=== PATIENT | female | born 1955 | race Caucasian/White ===

== ENCOUNTER → 2018-02-03 | Outpatient (CLI) | payer OTHER ==
--- NOTE | 2018-02-03 08:33 | RADIOLOGY REPORT (SQ) ---
EXAM DESCRIPTION: CHEST 2 VIEWS COMPLETED DATE/TIME: 02/03/2018 8:25 am REASON FOR STUDY: SOB (R06.02) COMPARISON: None. EXAM PARAMETERS: NUMBER OF VIEWS: two views TECHNIQUE: Digital Frontal and Lateral radiographic views of the chest acquired. RADIATION DOSE: NA LIMITATIONS: none FINDINGS: LUNGS AND PLEURA: No consolidations or effusions. There is curvilinear atelectasis the le ft base. MEDIASTINUM AND HILAR STRUCTURES: No masses or contour abnormalities. HEART AND VASCULAR STRUCTURES: Heart normal size. No evidence for failure. BONES: No acute findings. HARDWARE: None in the chest. OTHER: No other significant finding. IMPRESSION: No significant findings in the chest. TECHNICAL DOCUMENTATION: JOB ID: [id number] [employer]- All Rights Reserved Reading location - IP/workstation name: [email or web address]
--- NOTE | 2018-02-03 10:23 | RADIOLOGY REPORT (SQ) ---
EXAM DESCRIPTION: MRI RT LOWER JOINT WITHOUT COMPLETED DATE/TIME: 02/03/2018 9:45 am REASON FOR STUDY: PAIN IN RIGHT ANKLE (M25.571) M25.571 PAIN IN RIGHT ANKLE AND JOINTS OF RIGHT DENNY T R10.10 UPPER ABDOMINAL PAIN, UNSPECIFIED COMPARISON: None. TECHNIQUE: Right ankle images acquired and stored on PACS. Multiplanar images include fat sensitive sequences as T1, fluid sensitive sequences as FST2/STIR, cartilage sensitive sequences as FSPD, and g radient echo sequences. LIMITATIONS: Artifact plantar surface subcutaneous tissues forefoot. FINDINGS: BONE MARROW: Edema in the navicular. No fracture line identified. EFFUSIONS: No subtalar or tibiotalar effusions. No loose bodies. OSSEOUS ARTICULATIONS: Intact. TALAR DOME AND TIBIAL PLAFOND: Intact. ACHILLES TENDON: Intact without partial or full-thickness tear. No adjacent bursal fluid or edema. TIBIALIS ANTERIOR TENDON: Intact without edema at the 1st MT attachment. TIBIALIS POSTERIOR TENDON: Intact. FLEXOR HALLUCIS LONGUS AND FLEXOR DIGITORUM TENDONS: Intact. PERONEUS LONGUS AND BREVIS TENDON: Intact. ATFL, CFL, PTFL: Intact. No thickening or signal alteration. No rosita-ligamentous fluid. DELTOID LIGAMENT: Visualized components intact. TARSAL TUNNEL: No masses. No muscle atrophy. SINUS TARSI: No fluid. No reactive marrow edema or erosions. PLANTAR FASCIA: Intermediate signal and thickening of the calcaneal attachment. ADJACENT SOFT TISSUES: Cyst or ganglion between the distal 3rd and 4th metatarsals . OTHER: No other significant finding. IMPRESSION: 1. Marrow edema in the navicular which is nonspecific but worrisome for AVN in the absence of history of trauma. 2. Mild plantar fasciitis. TECHNICAL DOCUMENTATION: JOB ID: [id number] [employer]- All Rights Reserved Reading location - IP/workstation name: [email or web address]
--- NOTE | 2018-02-03 14:43 | RADIOLOGY REPORT (SQ) ---
EXAM DESCRIPTION: CT ABDOMEN COMBO COMPLETED DATE/TIME: 02/03/2018 8:49 am REASON FOR STUDY: UPPER ABD PAIN (R10.10) M25.571 PAIN IN RIGHT ANKLE AND JOINTS OF RIGHT FOOT R10. 10 UPPER ABDOMINAL PAIN, UNSPECIFIED COMPARISON: None. TECHNIQUE: CT scan of the abdomen performed with and without intravenous contrast, and oral contras t. Contrasted imaging performed using helical scanning technique with dynamic intravenous contrast in jection. Images reviewed with lung, soft tissue, and bone windows. Reconstructed coronal and sagittal MPR images reviewed. Delayed images for evaluation of the urinary system also acquired and evaluated . All images stored on PACS. All CT scanners at this facility use dose modulation, iterative reconstruction, and/or weight based d osing when appropriate to reduce radiation dose to as low as reasonably achievable (ALARA). [facility]: Dose Right [facility]: CareDose [facility]: Dose Right [facility]: Teradose 4D [facility]: sellpoints CONTRAST TYPE AND DOSE: contrast/concentration: Isovue 350.00 mg/ml; Total Contrast Delivered: 60.0 ml; Total Saline Delivered: 80.0 ml RENAL FUNCTION: Creatinine 0.8 RADIATION DOSE: CT Rad equipment meets quality standard of care and radiation dose reduction techniq ues were employed. CTDIvol: 15.9 - 28.2 mGy. DLP: 2399 mGy-cm.. LIMITATIONS: None. FINDINGS: NONCONTRASTED IMAGING: No significant renal or bladder calcifications. No other significan t organ calcifications. POSTCONTRASTED IMAGING: LOWER CHEST: Small hiatal hernia. LIVER: Normal size. No masses. No dilated ducts. SPLEEN: Normal size. No focal lesions. PANCREAS: No masses. No significant calcifications. No adjacent inflammation or peripancreatic fluid collections. Pancreatic duct not dilated. GALLBLADDER: No identified stones by CT criteria. No inflammatory changes to suggest cholecystitis. ADRENAL GLANDS: No significant masses or asymmetry. RIGHT KIDNEY AND URETER: No solid masses. No significant calcifications. No hydronephrosis or hyd roureter. LEFT KIDNEY AND URETER: 5 cm cyst lower pole. No solid mass. No significant calcifications. No h ydronephrosis or hydroureter. AORTA AND VESSELS: No aneurysm. No dissection. Renal arteries, SMA, celiac without stenosis. RETROPERITONEUM: No retroperitoneal adenopathy, hemorrhage or masses. BOWEL AND PERITONEAL CAVITY: Diverticulosis descending colon. No masses or inflammatory changes. No free fluid or peritoneal masses. APPENDIX: Not visualized. ABDOMINAL WALL: Small fat containing umbilical hernia. BONES: No acute findings. OTHER: No other significant finding. IMPRESSION: Diverticulosis descending colon. No acute findings. No urinary tract stones. TECHNICAL DOCUMENTATION: JOB ID: [id number] Quality ID # [id number]: Final reports with documentation of one or more dose reduction techniques (e.g., Au tomated exposure control, adjustment of the mA and/or kV according to patient size, use of iterative reconstruction technique) 2010 [employer]- All Rights Reserved Reading location - IP/workstation name: [email or web address]
== END ==
LOC: RAD 07:45
PROVIDERS: ATTEND Family Medicine
DX: G35 Multiple sclerosis (principal); K57.30 Diverticulosis of large intestine without perforation or abscess without bleeding; R10.10 Upper abdominal pain, unspecified; M25.571 Pain in right ankle and joints of right foot; R06.02 Shortness of breath
CPT/HCPCS: 71046; 74170; 82565

== ENCOUNTER → 2018-02-04 | Outpatient (CLI) | payer OTHER ==
--- NOTE | 2018-02-05 11:10 | RADIOLOGY REPORT (SQ) ---
EXAM DESCRIPTION: MRI HEAD COMBO COMPLETED DATE/TIME: 02/04/2018 7:56 pm REASON FOR STUDY: G35 MULTIPLE SCLEROSIS G35 MULTIPLE SCLEROSIS COMPARISON: None available TECHNIQUE: Multiplanar imaging includes noncontrasted T1, T2, FLAIR, diffusion with ADC map and post gadolinium contrast T1 sequences. Images stored on PACS. CONTRAST TYPE AND DOSE: 20 mL Dotarem. RENAL FUNCTION: GFR > 60. LIMITATIONS: Dedicated orbital protocol not performed. Routine brain imaging. FINDINGS: ANATOMY: No developmental anomalies. Normal vascular flow voids. Pituitary fossa normal. CSF SPACES: Normal in size and contour. No hemorrhage. CEREBRUM: In the right posterior frontal/ parietal deep periventricular white matter, a 5 mm focus of altered signal is present on FLAIR/ T2/diffusion weighted images. No definite contrast enhancement. This could represent a subacute demyelinating plaque. Scattered few other smaller foci of increased FLAIR/ T2 signal in the bifrontal deep periventricular white matter, left parietal white matter, right temporal lobe white matter from quiescent MS plaques. No MR evidence of acute ischemic change, acute intracranial hemorrhage, mass effect, or midline shift . POSTERIOR FOSSA: No signal alteration. No hemorrhage. No edema, masses, or mass effect. Internal dae tory canals, cerebellopontine angles, mastoids normal. No enhancing lesions. No abnormal enhancement post contrast. DIFFUSION IMAGING: Negative for acute or subacute infarction. ORBITS: No masses. Globes normal. PARANASAL SINUSES: No fluid levels. Mucosa normal. OTHER: No other significant finding. IMPRESSION: Subacute plaque in the right posterior frontal/ parietal deep periventricular white rico er. EVIDENCE OF ACUTE STROKE: NO. TECHNICAL DOCUMENTATION: JOB ID: [id number] [employer]- All Rights Reserved Reading location - IP/workstation name: [facility]
--- NOTE | 2018-02-05 11:18 | RADIOLOGY REPORT (SQ) ---
EXAM DESCRIPTION: MRI CERVICAL SPINE COMBO COMPLETED DATE/TIME: 02/04/2018 7:56 pm REASON FOR STUDY: G35 MULTIPLE SCLEROSIS G35 MULTIPLE SCLEROSIS COMPARISON: MRI brain without and with contrast same date TECHNIQUE: Sagittal and Axial imaging includes T1, T2, STIR and gradient echo sequences. T1 post scooter olinium sequences. CONTRAST TYPE AND DOSE: 20 mL Dotarem. RENAL FUNCTION: GFR > 60. LIMITATIONS: None. FINDINGS: ALIGNMENT: Normal. VERTEBRAE: Intact. BONE MARROW: Normal. No marrow replacement or reactive changes. There are benign hemangiomas in the C4 and C7 vertebral bodies of doubtful clinical significance DISCS: Diffuse decreased T2 weighted intervertebral disc signal. Very mild disc space loss of height at C5-6 HARDWARE: None in the spine. CORD AND BASE OF BRAIN: Normal in size and signal intensity. Specifically, no intrinsic cervical or upper thoracic cord lesions are identified worrisome for demyelinating disease SOFT TISSUES: No soft tissue masses. Anatomic variant, left carotid bifurcation is in the prevertebr al space C1-C2: No significant spinal stenosis. C2-C3: No significant spinal stenosis or exit foraminal stenosis. C3-C4: No significant spinal stenosis or exit foraminal stenosis. C4-C5: No significant spinal stenosis or exit foraminal stenosis. C5-C6: Minimal posterior disc bulge and bony spurring is present without significant central canal na rrowing. Mild bilateral foraminal narrowing from facet and uncovertebral hypertrophy C6-C7: No significant spinal stenosis or exit foraminal stenosis. C7-T1: No significant spinal stenosis or exit foraminal stenosis. UPPER THORACIC: Incompletely imaged. No significant spinal stenosis or exit foraminal stenosis. ENHANCEMENT: No abnormal cervical spinal cord enhancement. OTHER: No other significant finding. IMPRESSION: No abnormal intrinsic cord signal worrisome for demyelinating disease. Very mild degene rative changes at C5-6. COMMENT: None. TECHNICAL DOCUMENTATION: JOB ID: [id number] [employer]- All Rights Reserved Reading location - IP/workstation name: [facility]
== END ==
LOC: RAD 19:01
PROVIDERS: ATTEND Family Medicine
DX: G35 Multiple sclerosis (principal); R10.10 Upper abdominal pain, unspecified
CPT/HCPCS: 70553; 72156

== ENCOUNTER → 2018-02-05 | Outpatient (CLI) | payer OTHER ==
--- NOTE | 2018-02-05 17:25 | RADIOLOGY REPORT (SQ) ---
EXAM DESCRIPTION: MRI LT LOWER JOINT WITHOUT COMPLETED DATE/TIME: 02/05/2018 11:39 am REASON FOR STUDY: LEFT KNEE PAIN (M25.562) M25.562 PAIN IN LEFT KNEE COMPARISON: None. TECHNIQUE: Leftknee images acquired and stored on PACS. Multiplanar images include fat sensitive se quences as T1, water sensitive sequences as FST2 or STIR, cartilage sensitive sequences as FSPD, and gradient echo sequences. LIMITATIONS: None. FINDINGS: JOINT AND BURSAE: Small suprapatellar knee joint effusion. No Delacruz's cyst. BONE CORTEX AND MARROW: And neck ACL: Intact. No degeneration or ganglion cyst. PCL: Intact. MCL: Intact. No periligamentous edema or fluid. LCL: Intact. No periligamentous edema or fluid. MEDIAL MENISCUS: Diffuse horizontal tear throughout the anterior horn midbody and posterior horn medi al meniscus. No parameniscal cyst. This is best shown on coronal images 11-20. LATERAL MENISCUS: No tears. No abnormal signal. MEDIAL COMPARTMENT: High-grade diffuse chondromalacia is present with a mjcv-bd-pvdy appearance. Mil d bony spurring along the medial edge, medial femoral condyles and medial tibial plateau. Minimal rodriguez bcortical edema, weight-bearing surface medial femoral condyles best shown on coronal image 14. LATERAL COMPARTMENT: Cartilage preserved. No bone bruises or reactive marrow edema. No osteophytes. PATELLA: No chondromalacia. No subchondral cysts. Medial and lateral retinacula intact. EXTENSOR MECHANISM: Intact. Quadriceps and patella tendons normal. SOFT TISSUES: Adjacent muscles and subcutaneous tissues normal. Normal flow void in popliteal artery and vein. OTHER: No other significant finding. 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 TECHNICAL DOCUMENTATION: JOB ID: [id number] [employer]- All Rights Reserved Reading location - IP/workstation name: [email or web address]
== END ==
LOC: RAD 09:28
PROVIDERS: ATTEND Family Medicine
DX: M25.562 Pain in left knee (principal)

== ENCOUNTER 2018-05-05 15:44 | Day surgery (SDC) | payer OTHER ==
[2018-05-05] MEDS ORDERED: FENTANYL CITRATE INJ/PF 100 MCG/2 ML AMPUL ONE (16:42)
[2018-05-05] MEDS ORDERED: ONDANSETRON HCL INJ/PF 4 MG/2 ML SDV ONE (16:42)
[2018-05-05] MEDS ORDERED: DIPHENHYDRAMINE HCL 50 MG/ML VIAL ONE (16:42)
[2018-05-05] MEDS ORDERED: NALOXONE HCL INJ/PF 0.4 MG/1 ML SDV ONE (16:42)
[2018-05-05] MEDS ORDERED: EPINEPHRINE INJ 1 MG/10 ML DISP.SYRIN ONE (16:43)
[2018-05-05] MEDS ORDERED: FLUMAZENIL INJ 0.5 MG/5 ML VIAL ONE (16:43)
[2018-05-05] MEDS ORDERED: GLUCAGON,HUMAN RECOMB 1 MG INJ ONE (16:43)
[2018-05-05] MEDS: MIDAZOLAM 2 MG/2 ML INJ ONE ×2 (16:51→16:56)
--- NOTE | 2018-05-05 17:14 | Operative Report ---
Operative Report DATE OF SURGERY: 05/05/18 Operative Report: Pre-op diagnosis: Colon cancer screening Post-op diagnosis: 1. Ascending colon polyp 2. Pancolonic diverticulosis 3. Melanosis coli 4. Limited view of the colon Surgery: Colonoscopy with biopsy Medications: Versed 3mg, Fentanyl 100mcg IV push Tissue removed: Colon polyp Procedure: After informed consent obtained from patient, conscious sedation was achieved. A digital rectal examination was performed and this was unremarkable. The colonoscope was inserted into the rectum and advanced to the cecum. The appendiceal orifice and the terminal ileum were both identified. The mucosa was examined into details as the colonoscope was slowly pulled out of the patient. The endoscope was retroflexed in the rectum. Patient tolerated the procedure well. Findings View of the whole colon was limited due to retained stool. Cecum: Normal Ascending colon: A 2 mm polyp removed with the biopsy forceps Transverse colon: Few diverticuli Descending colon: Few diverticuli Sigmoid colon: Multiple diverticuli Rectum: Normal except for internal hemorrhoids Plan: Repeat colonoscopy and await pathology OPERATION: .
[2018-05-05 18:19] VITALS: BP 117/78
== END 2018-05-05 18:10 | disposition home or self-care (01) ==
LOC: END 15:44
PROVIDERS: ATTEND Internal Medicine Gastroenterology
DX: Z12.11 Encounter for screening for malignant neoplasm of colon (principal); D12.2 Benign neoplasm of ascending colon; K57.30 Diverticulosis of large intestine without perforation or abscess without bleeding; K63.89 Other specified diseases of intestine; K64.8 Other hemorrhoids; E66.9 Obesity, unspecified; G35 Multiple sclerosis; Z68.36 Body mass index [BMI] 36.0-36.9, adult
CPT/HCPCS: 45380; 88305 ×2; J2250; J3010; J0171; J1200; J1610; J2310; J2405; J3490

== ENCOUNTER 2018-05-12 15:32 | Day surgery (SDC) | payer OTHER ==
[2018-05-12] MEDS ORDERED: ONDANSETRON HCL INJ/PF 4 MG/2 ML SDV ONE (15:50)
[2018-05-12] MEDS ORDERED: FENTANYL CITRATE INJ/PF 100 MCG/2 ML AMPUL ONE (15:50)
[2018-05-12] MEDS ORDERED: NALOXONE HCL INJ/PF 0.4 MG/1 ML SDV ONE (15:50)
[2018-05-12] MEDS ORDERED: FLUMAZENIL INJ 0.5 MG/5 ML VIAL ONE (15:50)
[2018-05-12] MEDS ORDERED: EPINEPHRINE INJ 1 MG/10 ML DISP.SYRIN ONE (15:50)
[2018-05-12] MEDS ORDERED: GLUCAGON,HUMAN RECOMB 1 MG INJ ONE (15:50)
[2018-05-12] MEDS ORDERED: DIPHENHYDRAMINE HCL 50 MG/ML VIAL ONE (15:50)
[2018-05-12] MEDS: MIDAZOLAM 2 MG/2 ML INJ ONE ×2 (16:30→16:35)
--- NOTE | 2018-05-12 17:06 | Operative Report ---
Operative Report DATE OF SURGERY: 05/12/18 Operative Report: Pre-op diagnosis: History of left upper quadrant pain and incomplete colonoscopy Post-op diagnosis: 1. Mild antral gastritis 2. Pancolonic diverticulosis 3. Pancolonic melanosis coli 4. Cecal polyp Surgery: Upper endoscopy with biopsy and Colonoscopy and polypectomy Medications: Versed 3mg, Fentanyl 100mcg IV push Tissue removed: Antral and gastric body biopsy. Colon polyp was lost during suctioning Procedure: After informed consent obtained from patient, patient's pharynx was sprayed with Hurricane and conscious sedation was achieved. The upper endoscope was then inserted into the esophagus under direct vision and advanced into the stomach and further into the duodenum. Detailed examination of the duodenum, stomach and the esophagus was then performed. A digital rectal examination was performed and this was unremarkable. The col onoscope was inserted into the rectum and advanced to the cecum. The appendiceal orifice and the terminal ileum were both identified. The mucosa was examined into details as the colonoscope was slowly pulled out of the patient. The endoscope was retroflexed in the rectum. Patient tolerated the procedure well. Findings Esophagus: Normal Stomach: Mild erythema in the antrum Duodenum: Normal Cecum: 4 mm polyp removed with the cold snare Ascending colon: Diverticuli and brownish pigmentation Transverse colon: Diverticuli and brownish pigmentation Descending colon: Diverticuli and brownish pigmentation Sigmoid colon: Multiple diverticuli and brownish pigmentation Rectum: Normal except for internal hemorrhoids Plan: Prilosec 20 mg daily for 1 month. Repeat colonoscopy in 5 years OPERATION: .
[2018-05-12 18:13] VITALS: BP 119/78
== END 2018-05-12 18:00 | disposition home or self-care (01) ==
LOC: END 15:32
PROVIDERS: ATTEND Internal Medicine Gastroenterology
DX: D12.0 Benign neoplasm of cecum (principal); Z86.010 Personal history of colon polyps; K63.89 Other specified diseases of intestine; K29.50 Unspecified chronic gastritis without bleeding; K44.9 Diaphragmatic hernia without obstruction or gangrene; K57.30 Diverticulosis of large intestine without perforation or abscess without bleeding; G35 Multiple sclerosis; E66.9 Obesity, unspecified; Z68.36 Body mass index [BMI] 36.0-36.9, adult
CPT/HCPCS: 43239; 45385; 88342 ×2; 88305 ×2; J2250; J3010; 88312; J0171; J1200; J1610; J2310; J2405; J3490

== ENCOUNTER → 2018-05-13 | Outpatient (CLI) | payer OTHER ==
--- NOTE | 2018-05-13 16:56 | XCELERA REPORT ---
[address] [address] Lower Extremity Arterial Evaluation Name: CARIN BERGER Age: 62 yrs Gender: Female : 1955 Patient Status: Outpatient Patient Location: [facility] Study Date: 05/13/2018 10:43 AM Procedure: A color flow and duplex scan of the lower extremity arteries was performed bilaterally with velocity and waveform anaylsis. Ankle brachial indicies performed. PPG's performed. Reason For Study: PAD Ordering Physician: DEVANG STALEY Performed By: Michelle Dinh Measurements and Calculations Right Left FIELD SERVICE TECHNICIAN PSV -87.6 -78.6 cm/sec Prox PFA PSV 53.0 48.0 cm/sec Prox SFA PSV 100.9 81.2 cm/sec Mid SFA PSV 62.6 69.6 cm/sec Dist SFA PSV 64.0 88.0 cm/sec Mid SOLOMON PSV 64.2 72.4 cm/sec Mid SANDWICH ARTIST PSV 106.0 72.7 cm/sec Ryan Pedis PSV -34.2 -78.6 cm/sec Right Side Arterial Evaluation Normal velocity and triphasic waveforms noted from the Common Femoral artery to the infrageniculate vessels . Biphasic Dorsalis Pedis, crisp waveform, low normal velocity. Ankle Brachial index 0.8. PPG's are normal. . Left Side Arterial Evaluation Normal velocity and triphasic waveforms noted from the Common Femoral artery to the infrageniculate vessels . Biphasic Dorsalis Pedis, crisp waveform, normal velocity. Ankle Brachial index 0.8. PPG's are normal. . Interpretation Summary Bilateral duplex findings close to normal, suggestion of Slight Dorsalis Pedis disease, or variant of normal. JAIMEE's suggest mild arterial compromise. PPG's are normal. : DEVANG STALEY > Juventino Ash
== END ==
LOC: SP 09:39
PROVIDERS: ATTEND Podiatrist Foot Surgery
DX: I70.25 Atherosclerosis of native arteries of other extremities with ulceration (principal)
CPT/HCPCS: 93922; 93925

== ENCOUNTER → 2018-05-26 | Outpatient (CLI) | payer OTHER ==
[2018-05-26 11:11] LABS: HEMATOCRIT 37.5 % (36.0-47.0); HEMOGLOBIN 12.9 g/dL (12.0-15.5); MEAN CORPUSCULAR HEMOGLOBIN 30.2 pg (27.0-33.4); MEAN CORPUSCULAR HGB CONC 34.3 g/dL (32.0-36.0); MEAN CORPUSCULAR VOLUME 88 fl (80-97); PLATELET COUNT 322 10^3/uL (150-450); RED BLOOD COUNT 4.26 10^6/uL (3.72-5.28); RED CELL DISTRIBUTION WIDTH 13.6 % (11.5-14.0); WHITE BLOOD COUNT 6.9 10^3/uL (4.0-10.5)
[2018-05-26 11:33] LABS: ALANINE AMINOTRANSFERASE 44 U/L (9-52); ALBUMIN 4.5 g/dL (3.5-5.0); ALKALINE PHOSPHATASE 80 U/L (38-126); AMYLASE 58 U/L (30-110); ANION GAP 7 (5-19); ASPARTATE AMINO TRANSFERASE 31 U/L (14-36); BILIRUBIN,DIRECT 0.1 mg/dL (0.0-0.4); BILIRUBIN,TOTAL 0.7 mg/dL (0.2-1.3); BLOOD UREA NITROGEN 20 mg/dL (7-20); CALCIUM 10.1 mg/dL (8.4-10.2); CARBON DIOXIDE 28 mmol/L (22-30); CHLORIDE 107 mmol/L (98-107); GLUCOSE 84 mg/dL (75-110); LIPASE 134.7 U/L (23-300); SODIUM 141.5 mmol/L (137-145); TOTAL PROTEIN 7.3 g/dL (6.3-8.2)
== END ==
LOC: LAB 10:55
PROVIDERS: ATTEND Physician Assistant Surgical
DX: R10.12 Left upper quadrant pain (principal)
CPT/HCPCS: 36415; 80048; 80076; 82150; 83690; 85027

== ENCOUNTER → 2018-06-02 | Outpatient (CLI) | payer OTHER ==
--- NOTE | 2018-06-02 10:53 | WOMENS IMAGING REPORT ---
EXAM DESCRIPTION: U/S ABDOMEN TOTAL COMPLETED DATE/TIME: 06/02/2018 9:54 am REASON FOR STUDY: R10.12 LEFT UPPER QUADRANT PAIN R10.12 LEFT UPPER QUADRANT PAIN COMPARISON: None. TECHNIQUE: Dynamic and static grayscale images acquired of the abdomen and recorded on PACS. Additio nal selected color Doppler and spectral images recorded. Note: Study does not meet criteria for complete doppler/duplex scan LIMITATIONS: None. FINDINGS: PANCREAS: There is a mass in the head of the pancreas measuring 19 mm. There is central a gabriel of hypoechogenicity. LIVER: Increased echogenicity. No mass. LIVER VASCULATURE: Normal directional flow of the main portal vein and hepatic veins. GALLBLADDER: No stones. Normal wall thickness. No pericholecystic fluid. ULTRASOUND-DETECTED GRAF'S SIGN: Negative. INTRAHEPATIC DUCTS AND COMMON DUCT: CBD and intrahepatic ducts normal caliber. No filling defects. INFERIOR VENA CAVA: Patent. AORTA: No aneurysm. The distal aorta was not well seen. RIGHT KIDNEY: Normal size, 11.8 cm. Normal echogenicity. No solid or suspicious masses. No hyd ronephrosis. No calcifications. LEFT KIDNEY: Normal size, 12.1 cm. Normal echogenicity. No solid mass. There is a 5 cm cyst. No hydronephrosis. No calcifications. SPLEEN: Normal size, 12.3 cm. No mass. PERITONEAL AND PLEURAL SPACES: No ascites or effusions. OTHER: No other significant finding. IMPRESSION: 1. There appears to be a 19 mm mass in the head of the pancreas with hypoechoic center concerning for neoplasm. 2. Fatty infiltration of the liver. 3. Prominent left renal cyst. TECHNICAL DOCUMENTATION: JOB ID: [id number]- All Rights Reserved Reading location - IP/workstation name: [email or web address]
== END ==
LOC: WI 07:34
PROVIDERS: ATTEND Internal Medicine Gastroenterology
DX: R10.12 Left upper quadrant pain (principal)
CPT/HCPCS: 76700

== ENCOUNTER → 2018-09-23 | Outpatient (CLI) | payer OTHER ==
[2018-09-23 08:36] LABS: TRIGLYCERIDES 208 mg/dL (<150); VLDL CHOLESTEROL 41.6 mg/dL (10-31)
[2018-09-23 09:10] LABS: DIRECT LDL 152 mg/dL (<100)
[2018-09-23 11:15] LABS: ALANINE AMINOTRANSFERASE 29 U/L (9-52); ALBUMIN 4.4 g/dL (3.5-5.0); ALKALINE PHOSPHATASE 83 U/L (38-126); ANION GAP 8 (5-19); ASPARTATE AMINO TRANSFERASE 21 U/L (14-36); BILIRUBIN,DIRECT 0.2 mg/dL (0.0-0.4); BILIRUBIN,TOTAL 0.9 mg/dL (0.2-1.3); BLOOD UREA NITROGEN 19 mg/dL (7-20); CALCIUM 9.9 mg/dL (8.4-10.2); CARBON DIOXIDE 27 mmol/L (22-30); CHLORIDE 104 mmol/L (98-107); GLUCOSE 124 mg/dL (75-110); POTASSIUM 4.9 mmol/L (3.6-5.0); SODIUM 139.2 mmol/L (137-145); TOTAL PROTEIN 7.2 g/dL (6.3-8.2)
== END ==
LOC: OD 07:32
PROVIDERS: ATTEND Family Medicine
DX: E78.5 Hyperlipidemia, unspecified (principal); R73.9 Hyperglycemia, unspecified
CPT/HCPCS: 36415; 80053; 80061; 83036

== ENCOUNTER → 2018-09-24 | Outpatient (CLI) | payer OTHER ==
[2018-09-24 13:19] LABS: ABSOLUTE BASOPHILS # (AUTO) 0.1 10^3/uL (0.0-0.2); ABSOLUTE EOSINOPHILS # (AUTO) 0.3 10^3/uL (0.0-0.6); ABSOLUTE LYMPHOCYTES (AUTO) 1.8 10^3/uL (0.5-4.7); ABSOLUTE MONOCYTES (AUTO) 0.4 10^3/uL (0.1-1.4); ABSOLUTE NEUT (AUTO) 4.4 10^3/uL (1.7-8.2); BASOPHILS % (AUTO) 0.8 % (0-2); HEMATOCRIT 37.3 % (36.0-47.0); HEMOGLOBIN 12.7 g/dL (12.0-15.5); LYMPHOCYTES % (AUTO) 25.6 % (13-45); MEAN CORPUSCULAR HEMOGLOBIN 29.7 pg (27.0-33.4); MEAN CORPUSCULAR VOLUME 88 fl (80-97); MONOCYTES % (AUTO) 6.1 % (3-13); PLATELET COUNT 305 10^3/uL (150-450); RED BLOOD COUNT 4.25 10^6/uL (3.72-5.28); RED CELL DISTRIBUTION WIDTH 13.4 % (11.5-14.0); SEGMENTED NEUTROPHILS % (AUTO) 63.5 % (42-78); TOTAL CELLS COUNTED % (AUTO) 100 %; WHITE BLOOD COUNT 6.9 10^3/uL (4.0-10.5)
[2018-09-24 13:27] LABS: APPEARANCE,URINE SLIGHTLY-CLOUDY; BILIRUBIN,URINE NEGATIVE (NEGATIVE); COLOR,URINE YELLOW; GLUCOSE, URINE NEGATIVE (NEGATIVE); KETONES,URINE NEGATIVE (NEGATIVE); LEUKOCYTE ESTERASE,URINE SMALL (NEGATIVE); NITRITE,URINE NEGATIVE (NEGATIVE); PROTEIN,URINE NEGATIVE (NEGATIVE); URINE SPECIFIC GRAVITY 1.013; UROBILINOGEN,URINE NEGATIVE mg/dL (<2.0)
--- NOTE | 2018-09-24 23:00 | EKG REPORT ---
SEVERITY:- BORDERLINE ECG - SINUS RHYTHM BORDERLINE INFERIOR Q WAVES : Confirmed by: Mary Lunsford 24-Sep-2018 23:00:17
== END ==
LOC: OD 12:37
PROVIDERS: ATTEND Family Medicine
DX: R68.83 Chills (without fever) (principal); N39.0 Urinary tract infection, site not specified; K86.2 Cyst of pancreas; M54.16 Radiculopathy, lumbar region
CPT/HCPCS: 36415; 81001; 85025; 86301; 87086; 87088; 93005; 93010

== ENCOUNTER → 2018-09-28 | Outpatient (CLI) | payer OTHER ==
--- NOTE | 2018-09-28 11:00 | RADIOLOGY REPORT (SQ) ---
EXAM DESCRIPTION: MRI LUMBAR SPINE WITHOUT COMPLETED DATE/TIME: 09/28/2018 8:51 am REASON FOR STUDY: LUMBAR RADICULOPATHY M54.16 RADICULOPATHY, LUMBAR REGION COMPARISON: None. TECHNIQUE: Sagittal and Axial imaging includes T1, T2, STIR and gradient echo sequences. Coronal T2/ HASTE imaging. LIMITATIONS: Motion. FINDINGS: VISUALIZED UPPER ABDOMEN: Limited evaluation. No acute or suspicious findings suggested. SEGMENTATION: No transitional anatomy. The lowest well-developed disc space is labeled L5-S1. ALIGNMENT: Grade 1 anterolisthesis L5 relative to L4. VERTEBRAE: Intact. BONE MARROW: Benign hemangiomas. DISC SIGNAL: Desiccation multiple levels. POSTERIOR ELEMENTS: Generally intact. No pars defect evident. HARDWARE: None in the spine. CORD AND CONUS: Normal in size and signal intensity. Conus at the appropriate level. SOFT TISSUES: No aortic aneurysm seen. No bulky retroperitoneal adenopathy or mass. No paraspinal mas s or fluid. L1-L2: No significant spinal stenosis or exit foraminal stenosis. L2-L3: Mild spinal stenosis due to disc bulge and facet arthropathy. L3-L4: Mild spinal stenosis due to disc bulge and facet arthropathy. Mild neural foraminal narrowing bilaterally. L4-L5: Moderate spinal stenosis due to disc bulge, facet arthropathy and malalignment. Moderate neur al foraminal narrowing bilaterally. L5-S1: Disc bulge and facet arthropathy. Mild neural foraminal narrowing bilaterally. LOWER THORACIC: Incompletely imaged. No stenosis seen. SACRUM: Visualized upper sacrum intact. OTHER: No other significant findings. IMPRESSION: Spondylosis, facet arthropathy and malalignment. Spinal stenosis at multiple levels, mo re advanced at L4-5. TECHNICAL DOCUMENTATION: JOB ID: [id number] [employer]- All Rights Reserved Reading location - IP/workstation name: [email or web address]
== END ==
LOC: RAD 08:08
PROVIDERS: ATTEND Family Medicine
DX: M54.16 Radiculopathy, lumbar region (principal)
CPT/HCPCS: 72148

== ENCOUNTER 2018-10-21 11:19 | Emergency (ER) | payer OTHER ==
--- NOTE | 2018-10-21 12:47 | ER Document Report ---
ED Medical Screen (RME) - General Chief Complaint: Knee Pain Stated Complaint: RIGHT KNEE PAIN Time Seen by Provider: 10/21/18 12:32 Primary Care Provider: DAVID NJ MD [Primary Care Provider] - Follow up as needed Mode of Arrival: Ambulatory Information source: Patient TRAVEL OUTSIDE OF THE [place] IN LAST 30 DAYS: No - HPI Notes: 10/21/18 12:44 62-year-old female presents for evaluation of right knee and calf pain x2 weeks with swelling and tenderness as well as left wrist pain x3 weeks. Patient was seen by Dr. Nash, primary care provider who was concerned about blood clot couple weeks ago, patient has been trying to get into see Dr. Nash, Dr. Tyson advised to go to the ER for evaluation of potential blood clots. Patient states she hurt her left wrist while she was moving something in the van, is wearing a wrist splint, denies any direct trauma. Patient states the swelling has gone down in her right knee. Patient denies any blood clots, bleeding disorders, recent surgery, bleeding disorders. Patient is not on any anticoagulant therapy. Patient is a [] that presents to the emergency department for chief complaint of []. []. ROS: Other than noted above, the 12 point review of systems was reviewed with the patient and were negative, all pertinent findings are included in the HPI. PHYSICAL EXAMINATION: Vital signs reviewed. GENERAL: Well-appearing, well-nourished and in no acute distress. HEAD: Atraumatic, normocephalic. NECK: Normal range of motion CV: Heart regular rate and rhythm LUNGS: No respiratory distress ABD: generalized abd pain Musculoskeletal: Normal range of motion. Right knee with swelling induration, left calf with swelling and lateral aspect, distal pulses +2, left wrist tenderness on palpation, positive snuffbox test, radial pulses +2 in bilateral upper extremities. NEUROLOGICAL: Normal speech PSYCH: Normal mood, normal affect. MDM: Patient seen and examined for rapid initial assessment. Vital signs reviewed. A comprehensive ED assessment and evaluation of the patient, analysis of test results and completion of the medical decision making process will be conducted by additional ED providers. *Note is created using voice recognition software and may contain spelling, syntax or grammatical errors. - Related Data Allergies/Adverse Reactions: No Known Allergies Allergy (Verified 10/21/18 11:19) Past Medical History - Social History Chew tobacco use (# tins/day): No Frequency of alcohol use: None Drug Abuse: None - Past Medical History Cardiac Medical History: Denies: Hx Coronary Artery Disease, Hx Heart Attack, Hx Hypertension Pulmonary Medical History: Denies: Hx Asthma, Hx Bronchitis, Hx COPD, Hx Pneumonia Neurological Medical History: Denies: Hx Cerebrovascular Accident, Hx Seizures Renal/ Medical History: Denies: Hx Peritoneal Dialysis Musculoskeltal Medical History: Reports Hx Arthritis - KNEES Past Surgical History: Reports: Hx Orthopedic Surgery - bilateral knees - Immunizations Hx Diphtheria, Pertussis, Tetanus Vaccination: Yes Physical Exam - Vital signs Vitals: Temp Pulse Resp BP Pulse Ox 98.0 F 71 18 144/83 H 97 10/21/18 11:27 10/21/18 11:27 10/21/18 11:27 10/21/18 11:27 10/21/18 11:27 Course - Vital Signs Vital signs: Temp Pulse Resp BP Pulse Ox 98.0 F 71 18 144/83 H 97 10/21/18 11:27 10/21/18 11:27 10/21/18 11:27 10/21/18 11:27 10/21/18 11:27 Doctor's Discharge - Discharge Referrals: DAVID NJ MD [Primary Care Provider] - Follow up as needed
[2018-10-21 13:11] LABS: ABSOLUTE BASOPHILS # (AUTO) 0.1 10^3/uL (0.0-0.2); ABSOLUTE EOSINOPHILS # (AUTO) 0.2 10^3/uL (0.0-0.6); ABSOLUTE LYMPHOCYTES (AUTO) 1.5 10^3/uL (0.5-4.7); ABSOLUTE MONOCYTES (AUTO) 0.5 10^3/uL (0.1-1.4); ABSOLUTE NEUT (AUTO) 4.3 10^3/uL (1.7-8.2); BASOPHILS % (AUTO) 0.8 % (0-2); EOSINOPHILS % (AUTO) 3.6 % (0-6); HEMATOCRIT 37.4 % (36.0-47.0); HEMOGLOBIN 12.8 g/dL (12.0-15.5); LYMPHOCYTES % (AUTO) 22.6 % (13-45); MEAN CORPUSCULAR HGB CONC 34.3 g/dL (32.0-36.0); MEAN CORPUSCULAR VOLUME 88 fl (80-97); MONOCYTES % (AUTO) 7.1 % (3-13); PLATELET COUNT 307 10^3/uL (150-450); RED BLOOD COUNT 4.27 10^6/uL (3.72-5.28); RED CELL DISTRIBUTION WIDTH 13.3 % (11.5-14.0); SEGMENTED NEUTROPHILS % (AUTO) 65.9 % (42-78); TOTAL CELLS COUNTED % (AUTO) 100 %; WHITE BLOOD COUNT 6.5 10^3/uL (4.0-10.5)
[2018-10-21 13:27] LABS: PARTIAL THROMBOPLASTIN TIME 30.5 SEC (23.5-35.8); PROTHROMBIN TIME 13.2 SEC (11.4-15.4)
[2018-10-21 13:33] LABS: ALANINE AMINOTRANSFERASE 20 U/L (9-52); ALBUMIN 4.2 g/dL (3.5-5.0); ALKALINE PHOSPHATASE 70 U/L (38-126); ANION GAP 10 (5-19); ASPARTATE AMINO TRANSFERASE 20 U/L (14-36); BILIRUBIN,DIRECT 0.2 mg/dL (0.0-0.4); BILIRUBIN,TOTAL 0.4 mg/dL (0.2-1.3); BLOOD UREA NITROGEN 18 mg/dL (7-20); CALCIUM 9.4 mg/dL (8.4-10.2); CARBON DIOXIDE 24 mmol/L (22-30); CHLORIDE 106 mmol/L (98-107); GLUCOSE 106 mg/dL (75-110); TOTAL PROTEIN 6.8 g/dL (6.3-8.2)
--- NOTE | 2018-10-21 13:51 | RADIOLOGY REPORT (SQ) ---
EXAM DESCRIPTION: KNEE RIGHT 4 VIEWS COMPLETED DATE/TIME: 10/21/2018 1:35 pm REASON FOR STUDY: right knee swelling, calf pain x 2 weeks COMPARISON: None. NUMBER OF VIEWS: Four views. TECHNIQUE: AP, lateral, and both oblique radiographic images acquired of the right knee. LIMITATIONS: None. FINDINGS: MINERALIZATION: Normal. BONES: No acute fracture or dislocation. No worrisome bone lesions. JOINT: There is narrowing of the medial compartment with marginal osteophytes. Posterior patellar os teophytes are present. There is no joint effusion. SOFT TISSUES: No soft tissue swelling. No radio-opaque foreign body. OTHER: No other significant finding. IMPRESSION: Degenerative joint disease. TECHNICAL DOCUMENTATION: JOB ID: [id number] [employer]- All Rights Reserved Reading location - IP/workstation name: [email or web address]
--- NOTE | 2018-10-21 13:53 | RADIOLOGY REPORT (SQ) ---
EXAM DESCRIPTION: WRIST LEFT 3 VIEWS COMPLETED DATE/TIME: 10/21/2018 1:35 pm REASON FOR STUDY: left wrist pain x 2 weeks COMPARISON: None. NUMBER OF VIEWS: Three views. TECHNIQUE: AP, lateral, and oblique radiographic images acquired of the left wrist. LIMITATIONS: None. FINDINGS: MINERALIZATION: Normal. BONES: No displaced fracture or dislocation. Mild ill-defined sclerosis at the scaphoid waist. Mild degenerative changes about the wrist. SOFT TISSUES: No soft tissue swelling. No foreign body. OTHER: No other significant finding. IMPRESSION: No definite acute bony abnormality. Mild ill-defined sclerosis at the scaphoid waist which may represent occult scaphoid fracture. Recom mend correlation for snuffbox tenderness. If high clinical concern MRI or follow-up radiographs coul d be considered for further characterization. TECHNICAL DOCUMENTATION: JOB ID: [id number] [employer]- All Rights Reserved Reading location - IP/workstation name: [email or web address]
--- NOTE | 2018-10-21 14:53 | RADIOLOGY REPORT (SQ) ---
EXAM DESCRIPTION: VENOUS UNILATERAL LOWER COMPLETED DATE/TIME: 10/21/2018 2:44 pm REASON FOR STUDY: right calf pain x 2weeks COMPARISON: None. TECHNIQUE: Dynamic and static gilbert scale and color images acquired of the right leg venous system. S elected spectral images acquired with additional compression and augmentation maneuvers. The contrala teral common femoral vein and saphenofemoral junction were also imaged. Images stored on PACS. LIMITATIONS: None. FINDINGS: COMMON FEMORAL: Normal phasicity, compression and augmentation. No visualized echogenic ma terial on gilbert scale. No defects on color images. FEMORAL: Normal compression and augmentation. No visualized echogenic material on gilbert scale. No defe cts on color images. POPLITEAL: Normal compression, augmentation. No visualized echogenic material on gilbert scale. No defec ts on color images. CALF VESSELS: Normal compression, augmentation. No visualized echogenic material on gilbert scale. No de fects on color images. GSV and SSV: Normal compression, augmentation. No visualized echogenic material on gilbert scale. No def ects on color images. ANY DEEP VENOUS INSUFFICIENCY: Not evaluated. ANY EVIDENCE OF POPLITEAL CYST: No. OTHER: No other significant finding. CONTRALATERAL COMMON FEMORAL VEIN AND SAPHENOFEMORAL JUNCTION: Normal phasicity, compression and augmentation. No visualized echogenic material on gilbert scale. No de fects on color images. IMPRESSION: Negative examination for deep venous thrombosis in the right lower extremity. TECHNICAL DOCUMENTATION: JOB ID: [id number] [employer]- All Rights Reserved Reading location - IP/workstation name: [email or web address]
--- NOTE | 2018-10-21 15:55 | ER Document Report ---
ED General - General Chief Complaint: Knee Pain Stated Complaint: RIGHT KNEE PAIN Time Seen by Provider: 10/21/18 12:32 Primary Care Provider: DAVID NJ MD [Primary Care Provider] - Follow up as needed Mode of Arrival: Ambulatory TRAVEL OUTSIDE OF THE [place] IN LAST 30 DAYS: No - HPI Notes: 62-year-old female to the emergency department with complaints of right knee pain and right lower leg swelling that has been worsening over the past 3 weeks and left wrist pain after sustaining an injury 3 weeks ago. She states that her primary care Dr. Talaveraon her over here for evaluation for possible blood clots in the right lower leg. She states that she does have varicose veins and she notices that the leg gets more swollen. She states that sometimes the leg feels hot and looks slightly red as well. She states that walking on this leg hurts her and her knee is very stiff anytime she gets up and walks around. She takes 600 mg of ibuprofen daily to help control the pain. She states that 3 weeks ago she was moving very heavy objects and they fell onto her left wrist. She has had pain since then and has been wearing a brace to the pain she states that she is [id number]. She denies any recent new falls in the past week. She also reports a vague history of episodes of lightheadedness occasional chest pain that resolves on its own over the past year. She states the last episode she had was over 3 weeks ago. She does not have diabetes, high blood pressure, she does not smoke. She states that she does have borderline elevated high cholesterol and has been doing lifestyle modifications to help lower it. She denies any recent travel, any exogenous hormone use, history of DVT, history of PE. She denies any headache, shortness of breath, diaphoresis, nausea, vomiting. She states that she has had a meniscal tear in her right knee but has never had a repair with that. - Related Data Allergies/Adverse Reactions: No Known Allergies Allergy (Verified 10/21/18 11:19) Past Medical History - General Information source: Patient - Social History Smoking Status: Never Smoker Chew tobacco use (# tins/day): No Frequency of alcohol use: None Drug Abuse: None Family History: Other - History of cerebral aneurysm and father, paternal grandmother, and cousin Patient has suicidal ideation: No Patient has homicidal ideation: No - Past Medical History Cardiac Medical History: Denies: Hx Coronary Artery Disease, Hx Heart Attack, Hx Hypertension Pulmonary Medical History: Denies: Hx Asthma, Hx Bronchitis, Hx COPD, Hx Pneumonia Neurological Medical History: Denies: Hx Cerebrovascular Accident, Hx Seizures Renal/ Medical History: Denies: Hx Peritoneal Dialysis Musculoskeletal Medical History: Reports Hx Arthritis - KNEES Past Surgical History: Reports: Hx Orthopedic Surgery - bilateral knees - Immunizations Hx Diphtheria, Pertussis, Tetanus Vaccination: Yes Review of Systems - Review of Systems Constitutional: denies: Chills, Diaphoresis, Fever, Malaise EENT: No symptoms reported Cardiovascular: Chest pain - Intermittent episodes of chest pain with last episode over 3 weeks ago, Lightheaded - Intermitted episodes of lightheadedness with last episode 3 weeks ago, Edema - Right lower extremity swelling Respiratory: denies: Cough, Short of breath Gastrointestinal: denies: Abdominal pain, Diarrhea, Nausea, Vomiting Musculoskeletal: Joint pain - Knee pain and left wrist pain, Leg swelling - Right lower extremity swelling Skin: No symptoms reported Hematologic/Lymphatic: No symptoms reported Neurological/Psychological: No symptoms reported -: Yes All other systems reviewed and negative Physical Exam - Vital signs Vitals: Temp Pulse Resp BP Pulse Ox 98.0 F 71 18 144/83 H 97 10/21/18 11:27 10/21/18 11:27 10/21/18 11:27 10/21/18 11:27 10/21/18 11:27 Interpretation: Normal - General General appearance: Appears well, Alert - HEENT Head: Normocephalic, Atraumatic Eyes: Normal Pupils: PERRL - Respiratory Respiratory status: No respiratory distress Chest status: Nontender Breath sounds: Normal Chest palpation: Normal - Cardiovascular Rhythm: Regular Heart sounds: Normal auscultation Murmur: No - Abdominal Inspection: Normal Distension: No distension Bowel sounds: Normal Tenderness: Nontender Organomegaly: No organomegaly - Back Back: Normal - Extremities Wrist: Tender - To the left wrist there is noted mild edema dorsum of the wrist and left hand. There is tenderness to palpation over the dorsum of the wrist with noted snuffbox tenderness. Patient has mildly decreased extension and flexion of the left wrist due to painstrength is 4 out of 5 and handgrip due to pain. Cap refill is less than 2 seconds, radial pulses are intact and equal. Nontender left elbow joint and forearm. Knee: Tender - Mild tenderness to palpation over the anterior right knee joint with negative valgus varus stress testing and negative anterior drawer. There is mild joint effusion. The joint is not hot, red. Notes: There are noted varicosities to bilateral legs with associated spider veins. The right lower leg is larger than the left lower leg. Negative Homans bilaterally. There is no palpable cords. There is no tenderness to palpation over the right lower calf. DP pulses are intact and equal. - Neurological Neuro grossly intact: Yes Cognition: Normal Orientation: AAOx4 Kintyre Coma Scale Eye Opening: Spontaneous Kin[place] Coma Scale Verbal: Oriented Shane Coma Scale Motor: Obeys Commands Shane Coma Scale Total: 15 Speech: Normal Motor strength normal: LUE, RUE, LLE, RLE Sensory: Normal - Psychological Associated symptoms: Normal affect, Normal mood - Skin Skin Temperature: Warm Skin Moisture: Dry Skin Color: Normal Course - Re-evaluation Re-evalutation: 10/21/18 16:13 Impression: Right knee arthritis, bilateral leg varicosities, left wrist injury with concern for scaphoid fracture due to exam and x-ray reading. Patient initially injured this wrist 3 weeks ago. She has significant snuffbox tenderness. An x-ray suggest occult scaphoid fracture. We will go ahead and place patient in a thumb spica splint and have her follow-up with orthopedist without fail. I have discussed with her the risk of scaphoid fracture and AVN to bone. I have discussed that if she does not follow-up with an orthopedist and have this appropriately addressed that she could risk permanent pain, dysfunction, deformity. Further urged this because this is her dominant hand. We discussed her negative duplex for her right lower extremity. Besides her varicosities she really does have low risk for DVT. She has noted knee arthrit is and I suspect this is part of the reason why her knee hurts so badly. Offered her pain control but she does not want any controlled pain medicines. Do think that NSAIDs are the best option for her and she will take [id number] ibuprofen 600 800 mg by mouth every 8 hours as needed for pain. She would like information for an orthopedist in [place] or [place]. I have given her options for both and encouraged her to call tomorrow without fail. Labs are very reassuring. She has not had any chest pain, shortness of breath, lightheadedness for over 3 weeks and she is not experiencing any of that today do not think she needs further testing. Give strict and precautions to return if anything worsens. We will have her follow with her primary care physician by the end of this week. Patient agrees with the plan - Vital Signs Vital signs: Temp Pulse Resp BP Pulse Ox 98.0 F 71 18 144/83 H 97 10/21/18 11:27 10/21/18 11:27 10/21/18 11:27 10/21/18 11:27 10/21/18 11:27 - Laboratory Result Diagrams: 10/21/18 12:55 10/21/18 12:55 - Diagnostic Test Radiology reviewed: Image reviewed, Reports reviewed Discharge - Discharge Clinical Impression: Arthritis of knee, right, Right leg pain, Right leg swelling, Left wrist injury Varicose vein of leg Qualifiers: Varicose vein complication: unspecified Laterality: bilateral Qualified Code(s): I83.93 - Asymptomatic varicose veins of bilateral lower extremities Fracture of scaphoid of left wrist Qualifiers: Encounter type: initial encounter Fracture type: closed Condition: Stable Disposition: HOME, SELF-CARE Instructions: Fracture ([facility]), Arthritis ([facility]), Varicose Veins ([facility]) Additional Instructions: FOLLOW UP WITH ONE OF THE ORTHOPEDIST LISTED BELOW WITHOUT FAIL FOR YOUR KNEE AND FOR YOUR WRIST. KEEP WRIST AND HAND SPLINTED UNTIL SEEN BY ORTHOPEDIST. FAILURE TO FOLLOW UP WITH ORTHOPEDIST COULD LEAD TO PERMANENT PAIN, DYSFUNCTION, OR DEFORMITY OF THE HAND. RETURN IF ANY WORSENING SYMPTOMS. YOUR ULTRASOUND WAS NEGATIVE TODAY FOR BLOOD CLOT. FOLLOW UP WITH YOUR PRIMARY CARE AT THE BEGINNING OF NEXT WEEK. TAKE 600-800 MG OF IBUPROFEN FOR SANCHEZ EVERY 8 HOURS. [facility] [address] [place] [address] [facility] [address] [place] [address] [place] [address] Referrals: DAVID NJ MD [Primary Care Provider] - Follow up in 3-5 days
[2018-10-21 16:46] VITALS: BP 140/91
== END 2018-10-21 16:46 | disposition home or self-care (01) ==
LOC: ER 11:19
DX: M17.11 Unilateral primary osteoarthritis, right knee (principal); S62.002A Unspecified fracture of navicular [scaphoid] bone of left wrist, initial encounter for closed fracture; W20.8XXA Other cause of strike by thrown, projected or falling object, initial encounter; Y93.89 Activity, other specified; I83.93 Asymptomatic varicose veins of bilateral lower extremities; Z79.1 Long term (current) use of non-steroidal anti-inflammatories (NSAID); R42 Dizziness and giddiness; R07.9 Chest pain, unspecified
CPT/HCPCS: 36415; 80053; 85025; 85610; 85730; 93971; 99284

== ENCOUNTER → 2018-12-01 | Outpatient (CLI) | payer OTHER ==
--- NOTE | 2018-12-01 12:41 | RADIOLOGY REPORT (SQ) ---
EXAM DESCRIPTION: KNEE LEFT 4 VIEW COMPLETED DATE/TIME: 12/01/2018 10:25 am REASON FOR STUDY: KNEE PAIN COMPARISON: None. NUMBER OF VIEWS: Four views. TECHNIQUE: AP, lateral, and both oblique radiographic images acquired of the left knee. LIMITATIONS: None. FINDINGS: MINERALIZATION: Normal. BONES: No acute fracture or dislocation. No worrisome bone lesions. JOINT: There are some small marginal osteophytes medially. SOFT TISSUES: No soft tissue swelling. No radio-opaque foreign body. OTHER: No other significant finding. IMPRESSION: Mild degenerative joint disease in the medial compartment. TECHNICAL DOCUMENTATION: JOB ID: [id number] [employer]- All Rights Reserved Reading location - IP/workstation name: [email or web address]
== END ==
LOC: RAD 10:03
PROVIDERS: ATTEND Orthopaedic Surgery
DX: M17.12 Unilateral primary osteoarthritis, left knee (principal); M25.562 Pain in left knee